=== PATIENT | male | born 1970 | race Caucasian/White ===

== ENCOUNTER 2016-06-22 14:19 | Inpatient (IN) | payer BC ==
[~2016-06-22] VITALS: Ht 190.5 cm; Wt 109.5 kg
[2016-06-22 16:14] LABS: HEMOGLOBIN 7.2 gm/dl (14.0-17.5); RED BLOOD COUNT 2.26 M/UL (4.20-5.50); WHITE BLOOD COUNT 11.1 K/UL (4.5-11.0)
[2016-06-22 17:11] LABS: BUN/CREATININE RATIO 30 (0-10)
[2016-06-23 03:53] LABS: HEMOGLOBIN 6.1 gm/dl (14.0-17.5)
[2016-06-24 03:42] LABS: HEMOGLOBIN 6.3 gm/dl (14.0-17.5)
[2016-06-24] MEDS ORDERED: VENOFER IV (10:02)
[2016-06-24] MEDS ORDERED: VITAMIN B-121000 MC3 PO (10:03)
[2016-06-24] MEDS ORDERED: FOLIC ACID 1 MG1 MG PO (10:03)
[2016-06-24] MEDS ORDERED: MULTI-DAY VITA1 EACH PO (10:04)
[2016-06-24] MEDS ORDERED: PROTONIX40 MG PO (10:04)
[2016-06-24] MEDS ORDERED: FERROUS SULFAT325 M2 PO (10:05)
--- NOTE | 2016-06-24 10:22 | NUR ---
1022 INSTUCTED PATIENT ON IV SITE CARE. INSTRUCTED PT TO MAKE SURE IV IS REMOVED BY RN AT [facility]FUSION [facility] ON 06/27/16 AFTER LAST INFUSION.
== END 2016-06-24 11:12 | disposition home or self-care (01) | DRG 378 ==
LOC: CCU 14:19
PROVIDERS: Internal Medicine Gastroenterology; ADMIT Internal Medicine
PROC: 0DJ08ZZ Inspection of Upper Intestinal Tract, Via Natural or Artificial Opening Endoscopic (ICD-10-PCS; principal; 2016-06-23 12:15)
DX: K25.0 Acute gastric ulcer with hemorrhage (principal); D62 Acute posthemorrhagic anemia; R03.0 Elevated blood-pressure reading, without diagnosis of hypertension; R73.9 Hyperglycemia, unspecified; R00.0 Tachycardia, unspecified; R55 Syncope and collapse; K29.80 Duodenitis without bleeding; T39.015A Adverse effect of aspirin, initial encounter; E53.8 Deficiency of other specified B group vitamins
CPT/HCPCS: 36415; 80048; 82607; 82728; 82746; 83036; 83540; 83550; 83735; 85014; 85018; 85027; 93005; C9113; J1756; J2250; J3010; J7030; J7040; J7050

== ENCOUNTER → 2016-06-25 | Outpatient (CLI) | payer BC ==
[~2016-06-25] VITALS: Ht 190.5 cm; Wt 109.3 kg
[~2016-06-25] MED LIST: FERROUS SULFAT325 M2 PO; FOLIC ACID 1 MG1 MG PO; MULTI-DAY VITA1 EACH PO; PROTONIX40 MG PO; VENOFER IV; VITAMIN B-121000 MC3 PO
== END ==
LOC: OPSV 12:00
DX: D50.0 Iron deficiency anemia secondary to blood loss (chronic) (principal)
CPT/HCPCS: 96365; J1756; J7050

== ENCOUNTER → 2016-06-26 | Outpatient (CLI) | payer BC | LOC: OPSV 07:14 | DX: D64.9 Anemia, unspecified (principal); K92.2 Gastrointestinal hemorrhage, unspecified | CPT/HCPCS: 96365; J1756; J7050 ==

== ENCOUNTER → 2016-06-30 | Outpatient (CLI) | payer BC ==
[2016-06-30 12:22] LABS: HEMOGLOBIN 7.9 gm/dl (14.0-17.5)
== END ==
LOC: LAB 11:18
PROVIDERS: Internal Medicine
DX: D62 Acute posthemorrhagic anemia (principal)
CPT/HCPCS: 36415; 85014; 85018